=== PATIENT | female | born 1990 | race Two or more races ===

== ENCOUNTER → 2024-01-24 | Outpatient (CLI) | payer OTHER ==
[2024-01-24 09:21] LABS: Urine Bacteria None Seen /hpf (None Seen)
[2024-01-24 09:59] LABS: Basophils # (auto) 0 10 ^3/uL (0-0.2); Basophils % (auto) 0.7 % (0.0-2.0); Eosinophils # (auto) 0.1 10 ^3/uL (0-0.8); Eosinophils % (auto) 1.8 % (0.0-7.0); Hematocrit 38.7 % (36.0-46.0); Hemoglobin 13.7 g/dL (12.2-16.2); Lymphocytes # (auto) 1.9 10 ^3/uL (0.4-5.4); Lymphocytes % (auto) 31.2 % (10.0-50.0); Mean Corpuscular Hemoglobin 32.6 pg (28.0-32.0); Mean Corpuscular Hgb Conc. 35.4 g/dL (32.0-36.0); Mean Corpuscular Volume 91.9 fL (80.0-100.0); Monocytes # (auto) 0.4 10 ^3/uL (0-1.3); Monocytes % (auto) 6.4 % (0.0-12.0); Neutrophils # (auto) 3.6 10 ^3/uL (1.6-8.6); Neutrophils % (auto) 59.9 % (37.0-80.0); Platelet Count (auto) 258 10^3/uL (140-450); Red Blood Cells 4.21 10^6/uL (4.0-5.20); Red Cell Distribution Width 12.5 % (11.8-14.3)
[2024-01-24 10:20] LABS: Urine Blood Negative /uL (Negative); Urine Clarity Clear (Clear); Urine Color Light-Yellow (Yellow); Urine Protein, UAD Negative (Negative); Urine Specific Gravity 1.015 (1.001-1.035); Urine Urobilinogen Normal (Negative); Urine WBC <1 /hpf (0 - 5); Urine pH 5.5 (5.0-9.0)
[2024-01-24 10:30] LABS: Alanine Aminotransferase 28 U/L (7-40); Albumin 5.1 g/dL (3.2-4.8); Alkaline Phosphatase 84 U/L (46-116); Anion Gap 7 (5-15); Aspartate Aminotransferase 19 U/L (13-40); Blood Urea Nitrogen 10 mg/dL (9-23); Calcium 10.4 mg/dL (8.7-10.4); Carbon Dioxide 26 mmol/L (20-31); Chloride 105 mmol/L (98-107); Cholesterol 194 mg/dL (< 200); Glucose 84 mg/dL (74-106); HDL Cholesterol 73 mg/dL (40-59); LDL Cholesterol 105 mg/dL (< 100); Magnesium 2.2 mg/dL (1.6-2.6); Potassium 4.6 mmol/L (3.5-5.1); Sodium 138 mmol/L (136-145); Triglycerides 83 mg/dL (< 150)
[2024-01-24 10:31] LABS: Total Protein 7.9 g/dL (5.7-8.2)
[2024-01-24 11:45] LABS: Uric Acid 4.5 mg/dL (3.1-7.8)
[2024-01-24 11:50] LABS: % Iron Saturation 43.8 % (15-50)
[2024-01-24 11:55] LABS: Free T3 3.7 pg/mL (2.3-4.2); T3 Total 1.24 ng/mL (0.60-1.81)
[2024-01-24 16:53] LABS: Free T4 (Free Thyroxine) 1.17 ng/dL (0.89-1.76)
== END | disposition home or self-care (01) ==
LOC: LAB 09:03
PROVIDERS: ATTEND Family Medicine
DX: Z00.00 Encounter for general adult medical examination without abnormal findings (principal); Z86.19 Personal history of other infectious and parasitic diseases
CPT/HCPCS: 36415; 80053; 80061; 81001; 82306; 82607; 83036; 83540; 83550; 83735; 84439; 84443; 84480; 84481; 84550; 85025; 87086

== ENCOUNTER → 2024-07-06 | Outpatient (CLI) | payer OTHER ==
[2024-07-06 10:52] LABS: Follicle Stimulating Hormone 8.3 IU/L (SEE BELOW); Leuteinizing Hormone 5.9 IU/L
[2024-07-06 10:53] LABS: Prolactin 5.93 ng/mL (2.8-29.2)
[2024-07-06 10:58] LABS: % Iron Saturation 14.5 % (15-50)
[2024-07-06 15:25] LABS: Urine Bacteria None Seen /hpf (None Seen)
[2024-07-06 15:34] LABS: Urine Blood Negative /uL (Negative); Urine Clarity Clear (Clear); Urine Color Colorless (Yellow); Urine Protein, UAD Negative (Negative); Urine Specific Gravity 1.006 (1.001-1.035); Urine Squamous Epithelial Cell FEW /hpf (<5); Urine Urobilinogen Normal (Negative); Urine WBC 1 /HPF (0-5)
== END | disposition home or self-care (01) ==
LOC: LAB 08:34
PROVIDERS: ATTEND Family Medicine
DX: A63.0 Anogenital (venereal) warts (principal); L65.9 Nonscarring hair loss, unspecified; R35.0 Frequency of micturition; R87.612 Low grade squamous intraepithelial lesion on cytologic smear of cervix (LGSIL); R53.83 Other fatigue
CPT/HCPCS: 36415; 81001; 82533; 82670; 83001; 83002; 83540; 83550; 84144; 84146; 84403; 84443

== ENCOUNTER → 2024-08-03 12:16 | Emergency (ER) | payer OTHER ==
[~2024-08-03] VITALS: Ht 157.5 cm; Wt 49.2 kg
[2024-08-03 12:18] VITALS: BP 120/94; PULSE 125; RESP 16; TEMP 98.9; O2SAT 100
--- NOTE | 2024-08-03 12:57 | ED.PDOC ---
BUS TROLLEY AND TAXI INSTRUCTOR HPI Comments 34F presents to the ER w/ prior SHx of bunion Sx and the c/c of ABN Vaginal Bleeding. Pt reports on being at [facility] yesterday and having a cervical biopsy upstairs and was informed that she might have light bleeding but when the pt went home and took a shower, she stated on having a lot of blood w/ blood clots which was consistent. Denies chills, fever, N/V/D, SOB, CP. Denies any other associated symptom's, modifiers, or recent injuries or sick contact at this time. Chief Complaint: Vaginal Bleed Time Seen by MD: 12:50 Reviewed Notes: Nurses Notes, Medications, Allergies Allergies: Coded Allergies: NO KNOWN ALLERGIES (Unverified , 08/03/24) Information Source: Patient Mode of Arrival: Ambulatory Timing: Hours Prehospital treatment: None Severity: Moderate Vaginal Discharge: None Vaginal Lesions: None Bleeding Quality: Clotted Vaginal Mass: None Onset Of Mass/Bleeding: Other (Following cervical biopsy) Last Consensual [place]: Unknown Blood Type: Unknown Symptoms of Possible : None Associated Signs and Symptoms: Vaginal Bleeding Past Medical History PAST MEDICAL HISTORY: Denies Surgical History (Other): Bunion Sx PIT FURNACE OPERATOR History: No Pertinent PIT FURNACE OPERATOR History Family History Family History: Reviewed,noncontributory to illness, Unknown Social History Smoker: Non-Smoker Alcohol: Denies ETOH Use Drugs: Denies Drug Use Lives In: Home Constitutional: denies: chills, diaphoresis, fatigue, fever, malaise, sweats, weakness, others EENTM: denies: blurred vision, double vision, ear bleeding, ear discharge, ear drainage, ear pain, ear ringing, eye pain, eye redness, hearing loss, mouth pain, mouth swelling, nasal discharge, nose bleeding, nose congestion, nose pain, photophobia, tearing, throat pain, throat swelling, voice changes, others Respiratory: denies: cough, hemoptysis, orthopnea, SOB at rest, shortness of breath, SOB with excertion, stridor, wheezing, others Cardiovascular: denies: chest pain, dizzy spells, diaphoresis, Dyspnea on exertion, edema, irregular heart beat, left arm pain, lightheadedness, palpitations, PND, syncope, others Gastrointestinal: denies: abdomen distended, abdominal pain, blood streaked bowels, constipated, diarrhea, dysphagia, difficulty swallowing, hematemesis, melena, nausea, poor appetite, poor fluid intake, rectal bleeding, rectal pain, vomiting, others Genitourinary: reports: abnormal vagina bleeding; denies: burning, dyspareunia, dysuria, flank pain, frequency, hematuria, incontinence, pain, , vagina discharge, urgency, others Neurological: denies: dizziness, fainting, headache, left sided numbness, left sided weakness, numbness, paresthesia, pre-existing deficit, right sided numbness, right sided weakness, seizure, speech problems, tingling, tremors, we akness, others Musculoskeletal: denies: back pain, gout, joint pain, joint swelling, muscle pain, muscle stiffness, neck pain, others Integumetry: denies: bruises, change in color, change in hair/nails, dryness, laceration, lesions, lumps, rash, wounds, others Allergic/Immunocompromised: denies: Difficulty Healing, Frequent Infections, Hives, Itching, others Hematologic/Lymphatic: denies: anemia, blood clots, easy bleeding, easy bruising, swollen glands, others Endocrine: denies: excessive hunger, excessive sweating, excessive thirst, excessive urination, flushing, intolerance to cold, intolerance to heat, unexplained weight gain, unexplained weight loss, others Psychiatric: denies: anxiety, bipolar disorder, depression, hopeless, panic disorder, schizophrenia, sleepless, suicidal, others All Other Systems: Reviewed and Negative Physical Exam General Appearance: No Apparent Distress, Normal HEENT: Normal ENT Inspection, PERRL/EOMI, Pharynx Normal, TMs Normal Neck: Full Range of Motion, Non-Tender, Normal, Normal Inspection Respiratory: Chest Non-Tender, Lungs Clear, No Accessory Muscle Use, No Respiratory Distress, Normal Breath Sounds Cardiovascular: No Edema, No JVD, No Murmur, No Gallop, Normal Peripheral Pulses, Regular Rate/Rhythm Breast Exam: Deferred Gastrointestinal: No Organomegaly, Non Tender, No Pulsatile Mass, Normal Bowel Sounds, Soft Genitalia: Deferred Pelvic: Deferred, Vaginal Bleeding, Other (Patient has vaginal bleeding after cervical biopsy) Rectal: Deferred Extremities: No calf tenderness, Normal capillary refill, Normal inspection, Normal range of motion, Non-tender, No pedal edema Musculoskeletal : Apperance: Normal Neurologic: Alert, agricultural produce washer II-XII nml as Tested, No Motor Deficits, Normal Affect, Normal Mood, No Sensory Deficits Cerebellar Function: Normal Reflexes: Normal Skin: Dry, Normal Color, Warm Peripheral Pulses: 1+ carotid (R), 1+ carotid (L) Lymphatic: No Adenopathy Was a procedure done? Was a procedure done?: No Differential Diagnosis (PIT FURNACE OPERATOR) Vaginal Bleeding: Blood Loss Anemia, Cervicitis Mass / Lesion: N/A Vaginal Discharge: N/A X-Ray, Labs, Meds, VS Vital Signs Date Time Temp Pulse Resp B/P (MAP) Pulse Ox O2 Delivery O2 Flow Rate FiO2 08/03/24 12:18 98.9 125 16 120/94 (103) 100 98.9 X-Ray, Labs, Meds, VS Comment Seen in the emergency department eventful patient came in because of vaginal bleeding from cervical biopsy it is a profuse Doctor pearl has been consulted and the patient will be transferred to to her office Time of 1ST Reevaluation: 13:20 Reevaluation 1ST: Unchanged Time of 2ND Reevaluation: 13:00 Reevaluation 2ND: Unchanged Consultation: chain pegger Patient Education/Counseling: Diagnosis, Treatment, Prognosis, Need For Follow Up Family Education/Counseling: Diagnosis, Treatment, Prognosis, Need For Follow Up, No Family Present Departure 1 Departure Time of Disposition: 13:01 Impression: Primary Impression: Vaginal bleeding Additional Impression: History of colposcopy with cervical biopsy Disposition: HOME / SELF CARE / HOMELESS Condition: Fair Discharged With: Self, Other (Patient will go to doctor kang office) Critical Care Note Critical Care Time?: No Stability Stability form required: No Heart Score Heart Score: Heart Score Response (Comments) Value History N/A 0 EKG N/A 0 Age <45 0 Risk Factors No known risk factors 0 Troponin N/A 0 Total 0 I personally scribed for RYLAND MOTTA MD ([email or web address]) on 08/03/24 at 12:57. Electronically submitted by Juanito Linn ([email or web address]). RYLAND MOTTA MD August 03, 2024 12:57
== END | disposition left against medical advice (07) ==
LOC: ER 12:16
DX: N93.9 Abnormal uterine and vaginal bleeding, unspecified (principal); Z87.42 Personal history of other diseases of the female genital tract

== ENCOUNTER 2024-09-16 13:36 | Emergency (ER) | payer OTHER ==
[~2024-09-16] VITALS: Ht 160 cm; Wt 47.1 kg
--- NOTE | 2024-09-16 15:07 | ED.PDOC ---
Musculoskeletal HPI Comments This is a 34-year-old female who comes in with an inflamed left 2nd great toe that started about 3 days ago. Patient did not remember any specific event that happened. She had a lot of pain she ended up shopping for day causing more discomfort . Yesterday she went to the urgent care but they did not have an x- ray machine she came back today. X-ray per per patient was abnormal and they wanted to send her here for IV antibiotics.. Chief Complaint: Lower Extremity Time Seen by MD: 15:03 Reviewed Notes: Nurses Notes, Medications, Allergies Allergies: Coded Allergies: NO KNOWN ALLERGIES (Unverified , 08/03/24) Information Source: Patient Mode of Arrival: Ambulatory Past Medical History PAST MEDICAL HISTORY: Denies GAUGER CHIEF DELIVERY History: No Pertinent GAUGER CHIEF DELIVERY History Family History Family History: Reviewed,noncontributory to illness, Unknown Social History Smoker: Non-Smoker Alcohol: Denies ETOH Use Drugs: Denies Drug Use Lives In: Home Integumetry: reports: wounds, others (Left mid foot) Physical Exam General Appearance: No Apparent Distress, Normal HEENT: Normal ENT Inspection, PERRL/EOMI, Pharynx Normal, TMs Normal Neck: Non-Tender, Normal, Normal Inspection Respiratory: Lungs Clear, Normal Breath Sounds Cardiovascular: Normal Peripheral Pulses, Regular Rate/Rhythm Breast Exam: Deferred Gastrointestinal: Non Tender, Soft Genitalia: Deferred Pelvic: Deferred Rectal: Deferred Extremities: Normal capillary refill, Swelling, Tender, Other (Right 2nd toe mid foot with erythema and red streaking some swelling tender to touch) Neurologic: Alert, Normal Affect, Normal Mood Cerebellar Function: NOT DONE Reflexes: NOT DONE Skin: Warm Lymphatic: No Adenopathy Was a procedure done? Was a procedure done?: No Differential Diagnosis EXT Differential Diagnosis: Fracture, Sprain X-Ray, Labs, Meds, VS Vital Signs Date Time Temp Pulse Resp B/P (MAP) Pulse Ox O2 Delivery O2 Flow Rate FiO2 09/16/24 14:45 98.7 88 16 124/62 (82) 98 98.7 09/16/24 14:45 68 16 98 Room Air 09/16/24 14:05 98.2 104 16 140/83 (102) 100 98.2 X-Ray, Labs, Meds, VS Comment Patient seen and examined by me. Patient does have cellulitis of her left great toe extending to her mid foot with some red streaking she will be given a shot of Rocephin here and sent home with antibiotics.. I am doubtful that this is a new fracture. And I am doubtful that it is gout most likely degenerative changes or sequela from the previous trauma. Patient will be instructed to elevate rest the next couple of days I have given her specific instructions on when to return if the infection starts to become worse. Patient will follow up with her primary care doctor or ortho in the next couple of days. ORDER NUMBER(s): [id number], ACCESSION NUMBER(s): [id number] Indication: PAIN Technique: XY L 2ND TOE XRAYXY Comparison: None FINDINGS/IMPRESSION: Osteotomy changes of the 1st metatarsal head with fixation pin. There is ossification along the lateral aspect of the 2nd PIP joint measuring 7 mm. There are erosive changes of the 2nd PIP joint. These findings could represent sequela trauma/ previous trauma/Acute fracture, degenerative changes /heterotopic mineralization, inflammatory etiology. Correlate clinically. ATED BY: MAIRE NAIR MD DICTATED DATE/TIME: 09/16/24 1237 SIGNED BY: MARIE NAIR MD SIGNED DATE/TIME: 09/16/24 1237 Time of 1ST Reevaluation: 15:27 Reevaluation 1ST: Unchanged Reevaluation 2ND: Unchanged Patient Education/Counseling: Diagnosis, Treatment, Prognosis, Need For Follow Up Family Education/Counseling: No Family Present Departure 1 Departure Time of Disposition: 15:27 Impression: Primary Impression: Cellulitis Disposition: 01 HOME / SELF CARE / HOMELESS Condition: Good Additional Instructions: Elevate your leg in the next 24-48 hours and limit activity Start the antibiotics today If you notice increased redness or swelling or red streaking going more up your lower leg come back for IV antibiotics Follow-up with your orthopedic doctor e-Prescriptions Ibuprofen Micronized (Ibuprofen) 600 Mg Tab 600 MG PO Q6HPRN PRN for 5 Days, #20 TAB Prov: JUDI DAVIDSON NUCLEAR CONTROL ROOM OPERATOR 09/16/24 Sulfamethoxazole W/Trimethopri (Bactrim Ds Tablet) 1 Tab Tb 1 TAB PO BID for 7 Days, #14 TAB Prov: JUDI DAVIDSON NUCLEAR CONTROL ROOM OPERATOR 09/16/24 Discharged With: Self Critical Care Note Critical Care Time?: No Stability Stability form required: JUDI Arnold [facility] Sep 16, 2024 15:07
[2024-09-16] MEDS ORDERED: BACDST PO (15:29)
[2024-09-16] MEDS ORDERED: IBUP1TAB5 PO (15:29)
[2024-09-16] MEDS: cefTRIAXone W LIDOCAINE 1 GM IM IM ONE (15:41)
[2024-09-16 15:46] VITALS: BP 127/63; PULSE 92; RESP 16; TEMP 98.5; O2SAT 98
== END 2024-09-16 15:48 | disposition home or self-care (01) ==
LOC: ER 13:36
DX: L03.116 Cellulitis of left lower limb (principal)
CPT/HCPCS: 96372; 99283; J0696

== ENCOUNTER 2024-09-21 14:34 | Outpatient (CLI) | payer OTHER ==
[~2024-09-21 14:34] MED LIST: BACDST PO; IBUP1TAB5 PO
[2024-09-21 14:47] LABS: Hematocrit 33.7 % (36.0-46.0); Hemoglobin 11.4 g/dL (12.2-16.2); Mean Corpuscular Hemoglobin 28.4 pg (28.0-32.0); Mean Corpuscular Volume 83.7 fL (80.0-100.0); Nucleated Red Blood Cells % 0.0 %
[2024-09-21 15:18] LABS: Uric Acid 3.4 mg/dL (3.1-7.8)
[2024-09-22 12:07] LABS: Anti-Nuclear Antibody Direct Negative (Negative); Anti-dsDNA Antibody <1 IU/mL (0-9); Antiscleroderma-70 Antibody <0.2 AI (0.0-0.9); Sjogren's Anti-SS-A Antibody <0.2 AI (0.0-0.9); Sjogren's Anti-SS-B Antibody <0.2 AI (0.0-0.9)
[2024-09-25 12:07] LABS: Anti-Striated Muscle Antibody Negative (Neg:<1:100)
== END 2024-09-21 17:00 | disposition home or self-care (01) ==
LOC: LAB 14:34
PROVIDERS: ATTEND Family Medicine
DX: M79.676 Pain in unspecified toe(s) (principal); Z98.890 Other specified postprocedural states
CPT/HCPCS: 36415; 84550; 85025; 85652; 86141; 86160; 86225; 86235; 86376; 86431

== ENCOUNTER → 2024-10-26 | Outpatient (CLI) | payer OTHER ==
[2024-10-26 14:24] LABS: Urine Protein, UAD Negative (Negative)
[2024-10-26 15:17] LABS: Alanine Aminotransferase 27 U/L (7-40); Alkaline Phosphatase 79 U/L (46-116); Anion Gap 12 (5-15); Blood Urea Nitrogen 11 mg/dL (9-23); Calcium 9.7 mg/dL (8.7-10.4); Carbon Dioxide 24 mmol/L (20-31); Chloride 102 mmol/L (98-107); Glucose 88 mg/dL (74-106); Sodium 138 mmol/L (136-145); Triglycerides 105 mg/dL (< 150)
[2024-10-26 15:18] LABS: BUN/Creatinine Ratio 14.1 (10.0-20.0); Bilirubin, Total 0.6 mg/dL (0.2-1.0)
[2024-10-26 15:20] LABS: Free T3 3.2 pg/mL (2.3-4.2); Free T4 (Free Thyroxine) 1.22 ng/dL (0.89-1.76)
[2024-10-26 15:33] LABS: Albumin 5.5 g/dL (3.2-4.8); Cholesterol 207 mg/dL (< 200); HDL Cholesterol 80 mg/dL (40-59); Potassium 3.2 mmol/L (3.5-5.1); Total Protein 8.3 g/dL (5.7-8.2)
== END | disposition home or self-care (01) ==
LOC: LAB 13:44
PROVIDERS: ATTEND Family Medicine
DX: A63.0 Anogenital (venereal) warts (principal); Z13.31 Encounter for screening for depression; Z00.00 Encounter for general adult medical examination without abnormal findings
CPT/HCPCS: 36415; 80053; 80061; 81001; 82306; 82670; 83036; 83540; 84403; 84439; 84480; 84481

== ENCOUNTER 2024-11-06 06:30 | Outpatient (CLI) | payer OTHER ==
[2024-11-06 09:44] LABS: Urine Protein, UAD Negative (Negative)
== END 2024-11-06 17:00 | disposition home or self-care (01) ==
LOC: LAB 06:30
PROVIDERS: ATTEND Nurse Practitioner
DX: N39.0 Urinary tract infection, site not specified (principal)
CPT/HCPCS: 81001; 87086

== ENCOUNTER 2025-01-24 06:16 | Outpatient (CLI) | payer OTHER ==
[2025-01-24 06:55] LABS: Urine Protein, UAD Negative (Negative)
[2025-01-24 07:04] LABS: Hematocrit 39.1 % (36.0-46.0); Hemoglobin 13.4 g/dL (12.2-16.2); Mean Corpuscular Hemoglobin 30.1 pg (28.0-32.0); Mean Corpuscular Volume 87.8 fL (80.0-100.0); Nucleated Red Blood Cells % 0.0 %
== END 2025-01-24 17:00 | disposition home or self-care (01) ==
LOC: LAB 06:16
PROVIDERS: ATTEND Family Medicine
DX: E78.5 Hyperlipidemia, unspecified (principal); N39.0 Urinary tract infection, site not specified; N63.0 Unspecified lump in unspecified breast; R79.89 Other specified abnormal findings of blood chemistry; R79.0 Abnormal level of blood mineral
CPT/HCPCS: 36415; 81001; 84443; 85025; 87086